=== PATIENT | male | born 1975 | race Caucasian/White ===

== ENCOUNTER 2018-06-09 21:51 | Emergency (ER) | payer OTHER ==
[2018-06-09 21:58] VITALS: BP 147/90
[2018-06-09] MEDS ORDERED: LIDOCAINE 2% INJ-PF (20 MG/ML) 10 ML AMPUL NEB ONE (23:26)
--- NOTE | 2018-06-09 23:30 | ER Document Report ---
ED General - General Chief Complaint: Eye Injury Stated Complaint: EYE INJURY Time Seen by Provider: 06/09/18 22:45 Notes: Patient is a 42-year old male who presents after being exposed to bleach and vinegar fumes while cleaning earlier today. He states that since that time he has had a burning, irritating discomfort to his throat, face and eyes. He notes associated hyperlacrimation and rhinorrhea. He has had persistent coughing but has not had any overt shortness of breath. No hematemesis or hemoptysis. He has not seen his general doctor regarding today's concerns. No history of similar symptoms in the past. Nothing improves or worsens the symptoms. TRAVEL OUTSIDE OF THE [place] IN LAST 30 DAYS: No - Related Data Allergies/Adverse Reactions: No Known Allergies Allergy (Verified 06/09/18 21:58) Past Medical History - General Information source: Patient - Social History Smoking Status: Never Smoker Frequency of alcohol use: None Drug Abuse: None Lives with: Spouse/Significant other Family History: Reviewed & Not Pertinent Patient has suicidal ideation: No Patient has homicidal ideation: No Renal/ Medical History: Denies: Hx Peritoneal Dialysis Review of Systems - Review of Systems Notes: Constitutional: Negative for fever. HENT: Positive for throat irritation Eyes: Positive for eye burning, hyperlacrimation Cardiovascular: Negative for chest pain. Respiratory: Positive for coughing Gastrointestinal: Negative for abdominal pain, vomiting or diarrhea. Genitourinary: Negative for dysuria. Musculoskeletal: Negative for back pain. Skin: Negative for rash. Neurological: Negative for headaches, weakness or numbness. 10 point ROS negative except as marked above and in HPI. Physical Exam - Vital signs Vitals: Temp Pulse BP Pulse Ox 98.3 F 81 147/90 H 98 06/09/18 21:53 06/09/18 21:53 06/09/18 21:53 06/09/18 21:53 Interpretation: Normal Notes: PHYSICAL EXAMINATION: GENERAL: Well-appearing, well-nourished and in no acute distress. HEAD: Atraumatic, normocephalic. EYES: Pupils equal round and reactive to light, extraocular movements intact, sclera anicteric, mild conjunctival irritation bilaterally ENT: nares patent, oropharynx clear without exudates. Moist mucous membranes. NECK: Normal range of motion, supple without lymphadenopathy LUNGS: Breath sounds clear to auscultation bilaterally and equal. No wheezes rales or rhonchi. HEART: Regular rate and rhythm without murmurs ABDOMEN: Soft, nontender, normoactive bowel sounds. No guarding, no rebound. No masses appreciated. EXTREMITIES: Normal range of motion, no pitting or edema. No cyanosis. NEUROLOGICAL: No focal neurological deficits. Moves all extremities spontaneously and on command. PSYCH: Normal mood, normal affect. SKIN: Warm, Dry, normal turgor, no rashes or lesions noted. Course - Re-evaluation Re-evalutation: 06/09/18 23:28 Patient presents with throat, eye and facial irritation after cleaning with bleach and apple cider vinegar for several hours. He has no change in visual acuity, no direct exposure of the chemical to the eye only the vapors. He appears to have a local reaction due to the is a chemical exposure. No wheezing or stridor on exam. I have advised avoidance of re-exposure, anticipate resolution of his symptoms within the next 24 hours. A lidocaine nebulizer has assisted with his frequent coughing. No indication for labs or imaging. At this time will discharge with return precautions and follow-up recommendations. Verbal discharge instructions given a the bedside and opportunity for questions given. Medication warnings reviewed. Patient is in agreement with this plan and has verbalized understanding of return precautions and the need for primary care follow-up in the next 24-72 hours. - Vital Signs Vital signs: Temp Pulse Resp BP Pulse Ox 98.3 F 81 147/90 H 98 06/09/18 21:53 06/09/18 21:53 06/09/18 21:53 06/09/18 21:53 Discharge - Discharge Clinical Impression: Respiratory condition due to chemical fumes and vapors, Irritation of eye Condition: Good Disposition: HOME, SELF-CARE Additional Instructions: Please avoid recurrent exposure to the toxic fumes that triggered her symptoms today. Your symptoms will likely take 24-48 hours completely resolved. Please return if you have worsening of your symptoms, began vomiting, coughing blood, become short of breath, or have any other symptoms that are worrisome to you. Referrals: LOCALMD,NO [NO LOCAL MD] - Follow up as needed
== END 2018-06-09 23:50 | disposition home or self-care (01) ==
LOC: ER 21:51
DX: H53.8 Other visual disturbances (principal); T54.91XA Toxic effect of unspecified corrosive substance, accidental (unintentional), initial encounter; J39.2 Other diseases of pharynx; J34.89 Other specified disorders of nose and nasal sinuses; Y92.009 Unspecified place in unspecified non-institutional (private) residence as the place of occurrence of the external cause
CPT/HCPCS: 94640; 99283; J3490